=== PATIENT | male | born 1950 | race Caucasian/White ===

== ENCOUNTER → 2020-06-20 13:18 | Outpatient (BNVA) | payer OTHER, SELFPAY | PROVIDERS: PCP Internal Medicine Geriatric Medicine; Referring Provider Internal Medicine Geriatric Medicine; Visit Provider Urology | DX: Z76.89 Persons encountering health services in other specified circumstances (principal) ==

== ENCOUNTER 2020-12-11 13:35 | Outpatient (REF) | payer OTHER, SELFPAY ==
--- NOTE | ~2020-12-11 | US_ITS ---
EXAMINATION: US RETROPERITONEAL LIMITED (RENAL ONLY) CLINICAL INFORMATION: Calculus of kidney. COMPARISON: None TECHNIQUE: Real-time imaging of the kidneys. FINDINGS: RIGHT KIDNEY: 15.6 x 7.2 x 7.2 cm (SAG x AP x TRV). The kidney is normal in size, contour, and echogenicity. Renal cortical thickness is normal. There are multiple cysts. The largest measures 4.7 x 4.3 x 5 cm in the upper pole. No renal calculi or hydronephrosis. LEFT KIDNEY: 13.6 x 6.1 x 5.7 cm (SAG x AP x TRV). The kidney is normal in size, contour, and echogenicity. Renal cortical thickness is normal. There is question of a duplicated left renal collecting system with mild hydronephrosis and dilatation of the upper pole moiety proximal ureter versus extrarenal pelvis. No stone is seen. There is a 2.7 x 2.5 x 2.5 cm cyst in the lower pole.. US/US renal BI IMPRESSION: Question duplicated left renal collecting system with mild hydronephrosis and dilatation of the upper pole moiety proximal ureter versus extrarenal pelvis. Bilateral renal cysts, right greater than left.
== END 2020-12-11 13:36 | disposition home or self-care (01) ==
LOC: HO.US 13:35
PROVIDERS: PCP Internal Medicine Geriatric Medicine; Visit Provider Urology
DX: N20.0 Calculus of kidney (principal)
CPT/HCPCS: 76775

== ENCOUNTER → 2021-05-28 14:31 | Outpatient (BNVA) | payer OTHER, SELFPAY | PROVIDERS: PCP Internal Medicine Geriatric Medicine; Visit Provider Urology ==

== ENCOUNTER 2021-08-05 14:17 | Outpatient (REF) | payer OTHER, SELFPAY ==
--- NOTE | ~2021-08-05 | US_ITS ---
EXAMINATION: US RETROPERITONEAL LIMITED (RENAL ONLY) CLINICAL INFORMATION: Calculus of kidney. COMPARISON: Renal ultrasound 12/11/2020. TECHNIQUE: Real-time imaging of the kidneys. FINDINGS: RIGHT KIDNEY: 13.9 x 6.1 x 5.9 cm (SAG x AP x TRV). The kidney is normal in size, contour, and echogenicity. Renal cortical thickness is normal. No renal calculi or hydronephrosis. There are numerous cysts seen. There are anechoic cysts, largest in the upper pole measuring 4.3 x 3.4 x 3.7 seen. There is anechoic cyst in upper pole with septation measuring 4.1 x 4.6 x 3.8 seen. There are no echogenic stones. There are prominent dilated renal pyramids. LEFT KIDNEY: 13.1 x 6.1 x 5.4 cm (SAG x AP x TRV). The kidney is normal in size, contour, and echogenicity. Renal cortical thickness is normal. No renal calculi. There are numerous anechoic cysts. The largest lower pole cyst measures 2.8 x 2.6 x 2.5 cm and the midpole cyst measures 2.5 x 3.1 x 3.2 cm. There is mild hydronephrosis. Limited imaging to the bladder reveals a normal bilateral ureteral jet. US/US renal BI IMPRESSION: Bilateral renal cysts. Complex upper pole right renal cyst and simple cyst otherwise in both kidneys. Mild hydronephrosis left kidney likely due to redundant pelvis and ureter. Normal bilateral ureteral jets are seen in the bladder.
== END 2021-08-05 14:18 | disposition home or self-care (01) ==
LOC: HO.US 14:17
PROVIDERS: Visit Provider Urology
DX: N20.0 Calculus of kidney (principal)
CPT/HCPCS: 76775

== ENCOUNTER → 2021-08-30 13:59 | Outpatient (BNVA) | payer OTHER, SELFPAY | PROVIDERS: PCP Internal Medicine Geriatric Medicine; Visit Provider Urology | DX: N40.1 Benign prostatic hyperplasia with lower urinary tract symptoms (principal); N32.81 Overactive bladder; N20.0 Calculus of kidney | CPT/HCPCS: 52000 ==

== ENCOUNTER → 2021-11-29 11:12 | Outpatient (BNVA) | payer OTHER, SELFPAY | PROVIDERS: PCP Family Medicine; Visit Provider Urology | DX: Z13.89 Encounter for screening for other disorder (principal) ==

== ENCOUNTER → 2022-10-16 10:27 | Outpatient (BNVA) | payer OTHER, SELFPAY | PROVIDERS: PCP Family Medicine; Visit Provider Urology | DX: Z13.89 Encounter for screening for other disorder (principal) ==

== ENCOUNTER 2023-04-21 10:18 | Outpatient (AMB) | payer OTHER, SELFPAY ==
--- NOTE | 2023-04-21 10:32 | MHC.OFFVIS ---
Intake Intake Visit Reasons: 6m follow up/PVR Intake Note: Patient is present for Follow Up PVR Urology Med: Terazosin, Tadalafil Antibiotic Allergy: None Blood Thinner: None Pharmacy: [facility] PVR: 40 Allergies No Known Allergies Allergy (Verified 04/21/23 10:37) Medication List - Last Reconciled 04/21/23 by Chapin Oropeza MD amlodipine 10 mg PO DAILY losartan-hydrochlorothiazide 100-25 mg 1 tab PO DAILY meloxicam 15 mg PO DAILY PRN tadalafil 5 mg PO DAILY 90 days terazosin 5 mg PO BEDTIME 90 days HPI HPI Comments History of Present Illness Details Jabier is a pleasant male. He is a patient of Dr. Hines. He is seen for the following urologic conditions - lower urinary tract symptoms - overactive bladder dry - nephrolithiasis PVR 40 cc Has bladder control Some leakage at the end of urination Recommend pelvic floor exercises Will increase tadalafil to 10 mg Remains on combination terazosin and tadalafil Did discuss Botox versus InterStim Lower Urinary Tract Symptoms:? Current visit is for?further evaluation of, lower urinary tract symptoms, predominate irritative symptoms.? Current treatment includes combination therapy - terazosin, tadalafil - right discussion Botox ?Failed previous oxybutynin - failed PTNS, Myrbetriq, tropsium Cystoscopy - 09/07 smaller prostate with open bladder neck ? Prostate Symptom Score?09/05 , Mild (0-8), Bother 2.? Symptoms include?09/05 , incomplete emptying, weak stream, urgency.? Prostate volume?30-50gm Nephrolithiasis/Urolithiasis:? They are here for?further evaluation of nephrolithiasis.? Prior imaging includes?09/03 , a renal ultrasound, showing no evidence of stones - 12/05 renal ultrasound bilateral renal cysts 4.7 cm right, 2.7 cm left - 05/08 renal ultrasound multiple bilateral cysts up to 4 cm no evidence of stones PFSH Medical History Benign prostatic hyperplasia with lower urinary tract symptoms Feeling of incomplete bladder emptying HTN (hypertension) Hyperlipidemia Surgical History History of surgery Review of Systems Const Denies chills and Denies fever(s) Card Reports no additional complaints and Denies syncope Resp Denies cough GI Denies abdominal pain and Denies heartburn Reports as per HPI and Denies change in libido Neuro Denies syncope Psych Denies change in libido Endo Denies change in libido Physical Exam Const General: cooperative, healthy appearing, comfortable and no acute distress Orientation/consciousness: patient oriented x3 HEENT Face and sinus: Yes normal facial exam Mouth: moist mucous membranes Neck Neck: Yes normal visual inspection, Yes full ROM and Yes trachea midline Chest Chest palpation & inspection: normal inspection of the chest Resp Effort & Inspection: normal respiratory effort, able to speak in complete sentences and no respiratory distress GI Inspection: Yes normal to inspection Back/Spine/Pelvis Cervical Spine: normal cervical lordosis Thoracic/Lumbar Spine: thoracic and lumbar spine normal to inspection Skin General skin exam: no rashes or lesions noted Neuro General: patient oriented x3, gait normal, tone normal and moves all extremities Extrem General: Yes normal to inspection and Yes capillary refill normal Office Procedures Post Void Residual Post Residual Void Post Void Residual (PVR): 40 [id number] Void Residual by ultrasound Results AMB Urinalysis, Automated UA Leukoctes 0 Indira/uL Last Edit by JUANA Blount on 04/21/23 10:42 UA Nitrite Negative Last Edit by JUANA Blount on 04/21/23 10:42 UA Urobilinogen 0.2 mg/dL Last Edit by JUANA Blount on 04/21/23 10:42 UA Protein 0 mg/dL Last Edit by JUANA Blount on 04/21/23 10:42 UA pH 6.0 Last Edit by JUANA Blount on 04/21/23 10:42 UA Blood 0 Mike/uL Last Edit by JUANA Blount on 04/21/23 10:42 UA Specific Holman 1.020 Last Edit by JUANA Blount on 04/21/23 10:42 UA Ketone Negative Last Edit by JUANA Blount on 04/21/23 10:42 UA Bilirubin 0 mg/dL Last Edit by JUANA Blount on 04/21/23 10:42 UA Glucose 0 mg/dL Last Edit by JUANA Blount on 04/21/23 10:42 Results Reviewed Results Reviewed: Laboratory Last Values Urine pH (Auto) 6.0 04/21/23 10:37 Specific Holman (Auto) 1.020 04/21/23 10:37 Urine Protein (Auto) 0 mg/dL 04/21/23 10:37 Glucose (UA)(Auto) 0 mg/dL 04/21/23 10:37 Urine Ketones (Auto) Negative 04/21/23 10:37 Urine Blood (Auto) 0 Mike/uL 04/21/23 10:37 Urine Nitrite (Auto) Negative 04/21/23 10:37 Urine Bilirubin (Auto) 0 mg/dL 04/21/23 10:37 Urine Urobilinogen (Auto) 0.2 mg/dL 04/21/23 10:37 Leukocyte Esterase (Auto) 0 Indira/uL 04/21/23 10:37 Assessment & Plan Assessment & Plan (1) Overactive bladder: Code(s): N32.81 - Overactive bladder (2) BPH loc w urin obs/LUTS: Code(s): N40.1 - Benign prostatic hyperplasia with lower urinary tract symptoms Plan Increase tadalafil 10 mg 6 month follow-up Orders: Orders AMB Urinalysis Automated Today Z13.9 - Encounter for screening, unspecified AMB Post Void Residual by ultrasound Today N32.81 - Overactive bladder Medications: Changed From tadalafil 5 mg PO DAILY 90 days 90 tabs 3RF BPH N40.1 - Benign prostatic hyperplasia with lower urinary tract symptoms To tadalafil 10 mg PO DAILY 90 days 90 tabs 1RF BPH N40.1 - Benign prostatic hyperplasia with lower urinary tract symptoms Patient Instructions: Imaging studies, laboratory and physical exam results were discussed and reviewed in detail. No major barriers to patient understanding were identified. An opportunity to ask questions regarding the treatment plan was provided. All questions were answered. The patient expressed understanding and agreement with the above treatment plan. The patient is aware they should contact our office by phone for worsening of their current condition or the appearance of new urologic symptoms. Compliance is encouraged with any medications and followup testing that is ordered. It is a privilege to participate in the urologic care of your patient. If you have any questions or concerns regarding treatment for the above conditions, or other urologic issues, please do not hesitate to contact me. The office telephone contact is [phone]. This note is constructed using voice recognition software. While every effort has been made to ensure accuracy converter supervisor errors may have been included. Yours sincerely, Dr Chapin Oropeza MD, [facility] - Urology Providers of Expert, Compassionate Care for the Genitourinary System Coding Level of Care Code Est Pt Level 4 (09372) Diagnoses Overactive bladder N32.81 BPH loc w urin obs/LUTS N40.1 CPT Codes Post Residual Void - PVR CPT Code: 71728-Kkeu Void Residual by ultrasound ([id number])
== END 2023-04-21 11:31 | disposition home or self-care (01) ==
PROVIDERS: PCP Family Medicine; Visit Provider Urology
DX: N32.81 Overactive bladder (principal); N40.1 Benign prostatic hyperplasia with lower urinary tract symptoms; Z13.9 Encounter for screening, unspecified
CPT/HCPCS: 99214

== ENCOUNTER → 2023-04-21 10:18 | Outpatient (BNVA) | payer OTHER, SELFPAY | PROVIDERS: Visit Provider Urology | DX: N32.81 Overactive bladder (principal); N40.1 Benign prostatic hyperplasia with lower urinary tract symptoms; N13.8 Other obstructive and reflux uropathy; Z79.899 Other long term (current) drug therapy | CPT/HCPCS: 51798; 81003 ==

== ENCOUNTER 2023-10-27 08:26 | Outpatient (AMB) | payer OTHER, SELFPAY ==
--- NOTE | 2023-10-27 08:29 | A.OFFVIS_ITS ---
Intake Intake Visit Reasons: 6M PVR/Med Review (Confirmed) Intake Note: Patient presents today for a follow-up on PVR Meds- Tadalafil, Terazosin, Allergies to Antibiotic- No Known Allergies Blood Thinner- None Post Void Residual: 24ml Leasing Specialist Required: No Accompanied by: Self / Same As Patient Allergies No Known Allergies Allergy (Verified 10/27/23 08:36) HPI HPI Comments History of Present Illness Details Jabier is a pleasant male. He is a patient of Dr. Hines. He is seen for the following urologic conditions - lower urinary tract symptoms - overact delphine bladder dry - nephrolithiasis Telemedicine Evaluation 15 min Consultation [employer] Emmy Video attempted Follow-up for trial of tadalafil 10 mg to manage overactive bladder Remains on combination terazosin and tadalafil Did have some improvement with tadalafil Current primary issue is postvoid dribbling, urgency, frequency Will retrial anticholinergic this time using Toviaz Prior discussion Botox versus InterStim Leaning to InterStim possibly 2 month tele Lower Urinary Tract Symptoms:? Current visit is for?further evaluation of, lower urinary tract symptoms, predominate irritative symptoms.? Current treatment includes combination therapy - terazosin, tadalafil - right discussion Botox ?Failed previous oxybutynin - failed PTNS, Myrbetriq, tropsium Cystoscopy - 09/07 smaller prostate with open bladder neck ? Prostate Symptom Score?09/05 , Mild (0-8), Bother 2.? Symptoms include?09/05 , incomplete emptying, weak stream, urgency.? Prostate volume?30-50gm Nephrolithiasis/Urolithiasis:? They are here for?further evaluation of nephrolithiasis.? Prior imaging includes?1/18 , a renal ultrasound, showing no evidence of stones - 12/05 renal ultrasound bilateral renal cysts 4.7 cm right, 2.7 cm left - 05/08 renal ultrasound multiple bilateral cysts up to 4 cm no evidence of stones PFSH Medical History Benign prostatic hyperplasia with lower urinary tract symptoms Feeling of incomplete bladder emptying HTN (hypertension) Hyperlipidemia Surgical History History of surgery Review of Systems Const Denies chills and Denies fever(s) Card Reports no additional complaints and Denies syncope Resp Denies cough GI Denies abdominal pain and Denies heartburn Reports as per HPI and Denies change in libido Neuro Denies syncope Psych Denies change in libido Endo Denies change in libido Physical Exam Const General: cooperative, healthy appearing, comfortable and no acute distress Orientation/consciousness: patient oriented x3 HEENT Face and sinus: Yes normal facial exam Mouth: moist mucous membranes Neck Neck: Yes normal visual inspection, Yes full ROM and Yes trachea midline Chest Chest palpation & inspection: normal inspection of the chest Resp Effort & Inspection: normal respiratory effort, able to speak in complete sentences and no respiratory distress GI Inspection: Yes normal to inspection Back/Spine/Pelvis Cervical Spine: normal cervical lordosis Thoracic/Lumbar Spine: thoracic and lumbar spine normal to inspection Skin General skin exam: no rashes or lesions noted Neuro General: patient oriented x3, gait normal, tone normal and moves all extremities Extrem General: Yes normal to inspection and Yes capillary refill normal Office Procedures Post Void Residual Post Residual Void Post Void Residual (PVR): 24 [id number] Void Residual by ultrasound Assessment & Plan Assessment & Plan (1) Overactive bladder: Code(s): N32.81 - Overactive bladder (2) BPH loc w urin obs/LUTS: Code(s): N40.1 - Benign prostatic hyperplasia with lower urinary tract symptoms Plan Trial tibia Orders: Orders AMB Post Void Residual by ultrasound Today R33.9 - Retention of urine, unspecified Medications: New fesoterodine ER (Toviaz) 4 mg PO DAILY 30 tabs 1RF 30 days N32.81 - Overactive bladder, N39.41 - Urge incontinence Refilled terazosin 5 mg PO BEDTIME 90 caps 3RF 90 days N32.81 - Overactive bladder tadalafil 10 mg PO DAILY 90 tabs 1RF BPH 90 days N40.1 - Benign prostatic hyperplasia with lower urinary tract symptoms Patient Instructions: Imaging studies, laboratory and physical exam results were discussed and reviewed in detail. No major barriers to patient understanding were identified. An opportunity to ask questions regarding the treatment plan was provided. All questions were answered. The patient expressed understanding and agreement with the above treatment plan. The patient is aware they should contact our office by phone for worsening of their current condition or the appearance of new urologic symptoms. Compliance is encouraged with any medications and followup testing that is ordered. It is a privilege to participate in the urologic care of your patient. If you have any questions or concerns regarding treatment for the above conditions, or other urologic issues, please do not hesitate to contact me. The office telephone contact is [phone]. This note is constructed using voice recognition software. While every effort has been made to ensure accuracy senior fire protection engineer errors may have been included. Yours sincerely, Dr Chapin Oropeza MD, [facility] - Urology Providers of Expert, Compassionate Care for the Genitourinary System Coding Level of Care Code Est Pt Level 4 (95032) Diagnoses Overactive bladder N32.81 BPH loc w urin obs/LUTS N40.1 CPT Codes Post Residual Void - PVR CPT Code: 69311-Gida Void Residual by ultrasound ([id number])
== END 2023-10-27 08:46 | disposition home or self-care (01) ==
PROVIDERS: PCP Family Medicine; Visit Provider Urology
DX: N32.81 Overactive bladder (principal); N40.1 Benign prostatic hyperplasia with lower urinary tract symptoms
CPT/HCPCS: 99214

== ENCOUNTER → 2023-10-27 08:26 | Outpatient (BNVA) | payer OTHER, SELFPAY | PROVIDERS: PCP Family Medicine; Visit Provider Urology | DX: N32.81 Overactive bladder (principal); N40.1 Benign prostatic hyperplasia with lower urinary tract symptoms; N13.8 Other obstructive and reflux uropathy | CPT/HCPCS: 51798 ==

== ENCOUNTER 2024-01-01 08:51 | Outpatient (AMB) | payer OTHER, SELFPAY ==
--- NOTE | 2024-01-01 08:51 | MHC.OFFVIS ---
Intake Visit Reasons: 2m follow up Lead Business Systems Analyst Required: No Allergies No Known Allergies Allergy (Verified 01/01/24 08:52) Medication List - Last Reconciled 01/01/24 by Chapin Oropeza MD amlodipine 10 mg PO DAILY fesoterodine ER (Toviaz) 4 mg PO DAILY 90 days loratadine (Claritin) 10 mg PO DAILY losartan-hydrochlorothiazide 100-25 mg 1 tab PO DAILY meloxicam 15 mg PO DAILY PRN omeprazole 20 mg PO DAILY tadalafil 10 mg PO DAILY 90 days terazosin 5 mg PO BEDTIME 90 days HPI Comments Details: Jabier is a pleasant male. He is a patient of Dr. Hines. He is seen for the following urologic conditions - lower urinary tract symptoms - overactive bladder dry - nephrolithiasis Telemedicine Evaluation 15 min Consultation CDEL Emmy Video attempted Follow-up for trial of tadalafil 10 mg to manage overactive bladder Remains on combination terazosin and tadalafil Toviaz Has adequate control Still with some leakage will send pelvic floor exercises Leaning toward trial InterStim Will organized Lower Urinary Tract Symptoms:? Current visit is for?further evaluation of, lower urinary tract symptoms, predominate irritative symptoms.? Current treatment includes combination therapy - terazosin, tadalafil - prior discussion Botox ?Failed previous oxybutynin - failed PTNS, Myrbetriq, tropsium Cystoscopy - 09/07 smaller prostate with open bladder neck ? Prostate Symptom Score?09/05 , Mild (0-8), Bother 2.? Symptoms include?09/05 , incomplete emptying, weak stream, urgency.? Prostate volume?30-50gm Nephrolithiasis/Urolithiasis:? They are here for?further evaluation of nephrolithiasis.? Prior imaging includes?09/03 , a renal ultrasound, showing no evidence of stones - 12/05 renal ultrasound bilateral renal cysts 4.7 cm right, 2.7 cm left - 05/08 renal ultrasound multiple bilateral cysts up to 4 cm no evidence of stones PFSH Medical History HTN (hypertension) Hyperlipidemia Feeling of incomplete bladder emptying Benign prostatic hyperplasia with lower urinary tract symptoms Surgical History History of surgery Review of Systems Const All systems reviewed & are unremarkable except as noted in HPI and below Reports no additional complaints Resp Reports no additional complaints GI Reports no additional complaints Reports as per HPI Musc Reports no additional complaints Physical Exam Telemedicine evaluation Appropriate responses Regular breathing rate and rhythm HEENT Head: Yes normal to inspection Ears: hearing grossly normal bilaterally Eyes General: appearance normal, both eyes and all related structures Neck Neck: Yes normal visual inspection Chest Chest palpation & inspection: normal inspection of the chest Resp Effort & Inspection: normal respiratory effort and able to speak in complete sentences Telehealth Telehealth Telehealth Platform: CDEL Location of provider rendering services: practice address Location of patient: address on file Patient Identification confirmed using: Name, : Yes Telehealth method: video Patient verbally consented to treatment: Yes Patient verbally consented to billing insurance company: Yes Patient informed of any privacy concerns related to visit: Yes Minutes spent on Phone/Video with Pt.: 15 Assessment & Plan Assessment & Plan (1) Overactive bladder: Code(s): N32.81 - Overactive bladder Category: Medical (2) BPH loc w urin obs/LUTS: Code(s): N40.1 - Benign prostatic hyperplasia with lower urinary tract symptoms Category: Medical Plan Risks, benefits and alternatives to therapy were discussed. These include but are not limited to infection, bleeding, damage to local organs and tissues, need for further interventions. Anesthetic risks regarding cardiac arrhythmia, blood clots, and potential mortality were discussed. The patient understands the typical recovery time and the outpatient nature of the procedure. After consideration of these risks the patient gives full informed consent and they wish to move ahead with the procedure. InterStim trial bilateral lead Patient Instructions: Imaging studies, laboratory and physical exam results were discussed and reviewed in detail. No major barriers to patient understanding were identified. An opportunity to ask questions regarding the treatment plan was provided. All questions were answered. The patient expressed understanding and agreement with the above treatment plan. The patient is aware they should contact our office by phone for worsening of their current condition or the appearance of new urologic symptoms. Compliance is encouraged with any medications and followup testing that is ordered. It is a privilege to participate in the urologic care of your patient. If you have any questions or concerns regarding treatment for the above conditions, or other urologic issues, please do not hesitate to contact me. The office telephone contact is [phone]. This note is constructed using voice recognition software. While every effort has been made to ensure accuracy keel press operator errors may have been included. Yours sincerely, Dr Chapin Oropeza MD, [facility] - Urology Providers of Expert, Compassionate Care for the Genitourinary System Coding Level of Care Code Tele Est Pt Level 4 (09685) Complex EM visit Add On G2211 Diagnoses Overactive bladder N32.81 BPH loc w urin obs/LUTS N40.1
== END 2024-01-01 09:47 | disposition home or self-care (01) ==
LOC: HO.HUSH 08:51
PROVIDERS: PCP Family Medicine; Visit Provider Urology
DX: N32.81 Overactive bladder (principal); N40.1 Benign prostatic hyperplasia with lower urinary tract symptoms
CPT/HCPCS: 99214

== ENCOUNTER → 2024-01-01 08:51 | Outpatient (BNVA) | payer OTHER, SELFPAY | PROVIDERS: PCP Family Medicine; Visit Provider Urology ==

== ENCOUNTER 2024-03-17 12:34 | Outpatient (REF) | payer OTHER, SELFPAY ==
--- NOTE | 2024-03-17 14:11 | P.OP_ITS ---
Operative Note Operative Note Date of Service: 03/17/24 Narrative: PreOperative Diagnosis: 1) Overactive bladder with urinary urgency and frequency with urinary leakage Post Operative Diagnosis: 1) Overactive bladder with urinary urgency and frequency with urinary leakage (N39.41, R35.0) Procedure: 1.) Percutaneous implantation of neurostimulator electrode array including image guidance - performed bilateral - left and right foramen Surgeon: Dr Chapin Oropeza Anesthesia: sedation Indications for procedure: - Failed multiple (more than 2) anticholinergic medications in attempt to manage urinary urgency and frequency Procedure: After informed consent was verified the patient was brought to the interventional radiology suite. The patient was placed in a prone position and prepped and draped in a sterile fashion. Safety pause time-out was performed. Using the C-arm and Finder needle the S3 foramen exiting from the pelvic arch was marked horizontally from left to right as our horizontal marker. The left and right medial aspect of foramen were highlighted and aligned with the finder needle in a vertical fashion. Lines were marked. The intersection of these lines marked the entry point on the skin of the medial aspect of the left and right S3 foramen. Local anesthetic was infiltrated along the vertical aspect on both sides. The finder needle was inserted initially into the right targeted foramen. Imaging was performed in AP and lateral fashion. The needle was shown to into the left S4 foramen. The needle was repositioned and entry into the left S3 foramen was confirmed. The nondestructive tester was attached and assessed for placement with Sanjay response and toe movement at 0.4Amp. A 2nd needle was placed for entry into right S3 foramen. The nondestructive tester was attached and assessed for placement with Sanjay response and toe movement. Good responses were confirmed at low amperage (under 1A) bilateral - 0.3, 0.4 respectively Starting with the left side the internal introducer from the needle was removed and the nondestructive tester placed. The needle was carefully removed and imaging used to confirm good placement of nondestructive tester. This procedure was repeated on the left side. The two test leads were then attached to the test generator and appropriate dressing was applied in order to maintain integrity for the duration of the outpatient test sequence. CPT 19556, plus 27644-01 for second lead placement. Inclusive of image guidance, 44563 - simple programming
== END 2024-03-17 12:35 | disposition home or self-care (01) ==
LOC: HO.RADIR 12:34
PROVIDERS: Visit Provider Urology
DX: N39.41 Urge incontinence (principal); R35.0 Frequency of micturition; N32.81 Overactive bladder
CPT/HCPCS: 64561; C1787; C1897

== ENCOUNTER → 2024-03-17 12:34 | Outpatient (BNV) | payer OTHER, SELFPAY | PROVIDERS: Visit Provider Urology | DX: N32.81 Overactive bladder (principal) | CPT/HCPCS: 64561; 95971 ==

== ENCOUNTER 2024-03-24 14:19 | Outpatient (AMB) | payer OTHER, SELFPAY ==
--- NOTE | 2024-03-24 14:25 | A.OFFVIS_ITS ---
Intake Visit Reasons: Lead removal Intake Note: Patient presents today for Interstim Lead Removal Meds: Tadalafil, Terazosin, Fesoterodine Allergies to Antibiotic: No Known Allergies Blood Thinner: None Cutter Plastics Rolls Required: No Accompanied by: Self / Same As Patient Allergies No Known Allergies Allergy (Verified 03/24/24 14:37) HPI Comments Details: Jabier is a pleasant 73-year-old male patient of Dr. Hines. He has a past medical history of hypertension, hyperlipidemia, nephrolithiasis, and overactive bladder. He presents to the office today for removal of InterStim test leads. Of note, patient was seen by Dr. Oropeza approximately 1 week ago at which time he underwent InterStim phase 1 placement. In discussion with the patient today he reports noting improvement in episodes of urinary frequency as well as nocturia. He shares with me data collected on [employer] application. Patient had been having up to 9 voids per day and episodes of nocturia up to 5 times per night this has decreased to approximately 7 voids per day and 3 episodes of nocturia per night. He feels this has been helpful for him. InterStim test leads removed without difficulty. He has a longstanding history of overactive bladder/irritative symptoms and has trialed multiple overactive bladder medications without improvement in symptoms. He otherwise denies any other issues or concerns at this time. Will keep scheduled appointment for InterStim placement on Thursday with Dr. Oropeza as planned. All questions were answered. PREVIOUS OFFICE NOTE: Follow-up for trial of tadalafil 10 mg to manage overactive bladder Remains on combination terazosin and tadalafil Toviaz Has adequate control Still with some leakage will send pelvic floor exercises Leaning toward trial InterStim Will organized Lower Urinary Tract Symptoms:? Current visit is for?further evaluation of, lower urinary tract symptoms, predominate irritative symptoms.? Current treatment includes combination therapy - terazosin, tadalafil - prior discussion Botox ?Failed previous oxybutynin - failed PTNS, Myrbetriq, tropsium Cystoscopy - 09/07 smaller prostate with open bladder neck ? Prostate Symptom Score?09/05 , Mild (0-8), Bother 2.? Symptoms include?09/05 , incomplete emptying, weak stream, urgency.? Prostate volume?30-50gm Nephrolithiasis/Urolithiasis:? They are here for?further evaluation of nephrolithiasis.? Prior imaging includes?09/03 , a renal ultrasound, showing no evidence of stones - 12/05 renal ultrasound bilateral renal cysts 4.7 cm right, 2.7 cm left - 05/08 renal ultrasound multiple bilateral cysts up to 4 cm no evidence of stones PFSH Medical History HTN (hypertension) Hyperlipidemia Feeling of incomplete bladder emptying Benign prostatic hyperplasia with lower urinary tract symptoms Surgical History History of surgery Review of Systems Const All systems reviewed & are unremarkable except as noted in HPI and below Physical Exam Const General: cooperative, healthy appearing, comfortable, no acute distress, well developed, alert and awake Orientation/consciousness: patient oriented x3 Limitations: no limitations HEENT Head: Yes normal to inspection, Yes normocephalic and Yes atraumatic Ears: hearing grossly normal bilaterally Eyes General: appearance normal, both eyes and all related structures Neck Neck: Yes normal visual inspection and Yes trachea midline Chest Chest palpation & inspection: normal inspection of the chest Resp Effort & Inspection: normal respiratory effort and able to speak in complete sentences Cardio Rate: regular rate GI Inspection: Yes normal to inspection General: Yes no CVA tenderness Back/Spine/Pelvis Back: no CVA tenderness Skin General skin exam: no rashes or lesions noted Neuro General: patient oriented x3 Extrem General: Yes normal to inspection Psych Appearance: grossly normal and well kempt Mental Status: mental status grossly normal Speech and movement: Normal speech and movement present and Clear speech present Affect: normal affect Attitude: cooperative Thought process: Normal thought process present Thought content: Normal thought content present Insight: Fair insight present (Psych) Judgement: Fair judgement present (Psych) Assessment & Plan Assessment & Plan (1) Overactive bladder: Code(s): N32.81 - Overactive bladder Category: Medical (2) BPH loc w urin obs/LUTS: Code(s): N40.1 - Benign prostatic hyperplasia with lower urinary tract symptoms Category: Medical Plan InterStim test leads removed without difficulty; leads intact upon removal. Patient tolerated removal well. Site appears clean dry and intact. Keep scheduled surgical appointment with Dr. Oropeza for surgical intervention of InterStim placement. Patient Instructions: The patient had an opportunity to ask questions regarding the treatment plan. All questions were answered. Physical exam, labs, and imaging were discussed and reviewed in detail. As well as risks, benefits, and discussion of treatment choices. No major barriers to understanding were identified. The patient expressed understanding and agreement with the above treatment plan. The patient was made aware they should contact our office by phone for worsening of their current condition, the appearance of new symptoms, or with any questions or concerns. Compliance is encouraged with any medications and follow up testing that is ordered. It is a privilege to be allowed the opportunity to participate in? your urological care.? Again, if you have any questions or c oncerns If you have any questions or concerns please do not hesitate to contact me. The office is [phone]. This note is constructed using voice recognition software. While every effort has been made to ensure accuracy mint wafer depositor errors may have been included. Yours sincerely, CARMEN Cooper Coding Level of Care Code Est Pt Level 3 (36411) Diagnoses Overactive bladder N32.81 BPH loc w urin obs/LUTS N40.1
== END 2024-03-24 15:02 | disposition home or self-care (01) ==
PROVIDERS: Visit Provider Nurse Practitioner Family
DX: N32.81 Overactive bladder (principal); N40.1 Benign prostatic hyperplasia with lower urinary tract symptoms
CPT/HCPCS: 99213

== ENCOUNTER → 2024-03-24 14:19 | Outpatient (BNVA) | payer OTHER, SELFPAY | PROVIDERS: Visit Provider Nurse Practitioner Family ==

== ENCOUNTER 2024-03-28 10:54 | Day surgery (SDC) | payer OTHER, SELFPAY ==
--- NOTE | 2024-03-25 11:45 | HO.ANESPROP2 ---
Documented by User: Sarah Santos NP 03/25/24 11:51 HPI - Anesthesia Eval Consult details Narrative: 73yo M for Interstim Generator Implant PMFSH Active Problems Active Problems: All Active Problems Overactive bladder (Acute) Nephrolithiasis (Acute) BPH loc w urin obs/LUTS (Acute) Past Medical History Medical History (Updated 03/28/24 @ 11:37 by Ashleigh Holden RN) Hepatitis-C Sleep apnea Kidney stones HTN (hypertension) Hyperlipidemia Feeling of incomplete bladder emptying Benign prostatic hyperplasia with lower urinary tract symptoms Surgical History Surgical History (Updated 03/28/24 @ 11:32 by Ashleigh Holden, RN) History of surgery History of Achilles tendon repair History of back surgery H/O rotator cuff surgery History of surgery Social History Social History Patient Tobacco Use Status: Former Tobacco user Tobacco use type: Cigarette Meds Allergies Allergy/AdvReac Type Severity Reaction Status Date / Time No Known Allergies Allergy Verified 03/24/24 14:37 Home Medications ?Medication ?Instructions ?Recorded ?Confirmed ?Last Taken ?Type amlodipine 10 mg tablet 10 mg PO DAILY 06/20/20 01/01/24 Unknown History losartan 100 1 tab PO DAILY 06/20/20 01/01/24 Unknown History mg-hydrochlorothiazide 25 mg tablet meloxicam 15 mg tablet 15 mg PO DAILY PRN pain 08/30/21 01/01/24 Unknown History omeprazole 20 mg capsule,delayed 20 mg PO DAILY 10/27/23 01/01/24 Unknown History release Exam Pertinent Lab Results Pertinent Lab Results: Labs 11/2023 from outside facility: CBC and BMP WNL Narrative Narrative: ECHO 2021 WNL per 2022 PCP visit Assessment and Plan Assessment Anesthesia Assessment: Chart Reviewed Documented by User: Montez Smith MD 03/28/24 15:53 PMFSH Past Medical History Medical History (Updated 03/28/24 @ 11:37 by Ashleigh Holden RN) Hepatitis-C Sleep apnea Kidney stones HTN (hypertension) Hyperlipidemia Feeling of incomplete bladder emptying Benign prostatic hyperplasia with lower urinary tract symptoms Family History Family history of problems with anesthesia: No Surgical History Surgical History (Updated 03/28/24 @ 11:32 by Ashleigh Holden RN) History of surgery History of Achilles tendon repair History of back surgery H/O rotator cuff surgery History of surgery History of Problems with Anesthesia: Yes (Told me he vomited during a minimally invasive back procedure at [facility] while he was in the prone position. The procedure had to be aborted. Doesn't know what kind of anesthesia it was.) Social History Social History Patient Tobacco Use Status: Former Tobacco user Tobacco use type: Cigarette Meds Allergies Allergy/AdvReac Type Severity Reaction Status Date / Time No Known Allergies Allergy Verified 03/24/24 14:37 Home Medications ?Medication ?Instructions ?Recorded ?Confirmed ?Last Taken ?Type amlodipine 10 mg tablet 10 mg PO DAILY 06/20/20 01/01/24 Unknown History losartan 100 1 tab PO DAILY 06/20/20 01/01/24 Unknown History mg-hydrochlorothiazide 25 mg tablet meloxicam 15 mg tablet 15 mg PO DAILY PRN pain 08/30/21 01/01/24 Unknown History omeprazole 20 mg capsule,delayed 20 mg PO DAILY 10/27/23 01/01/24 Unknown History release Exam Airway Mallampati Class: II TM Dist: >3cm Neck ROM: Full Loose/Missing/Broken Teeth: No Heart: ok Lungs: ok Assessment and Plan Assessment Anesthesia Assessment: Anesthesia Plan Discussed Final Anesthetic Review Family History of Problems with Anesthesia: No History of Problems with Anesthesia: Yes (Told me he vomited during a minimally invasive back procedure at [facility] while he was in the prone position. The procedure had to be aborted. Doesn't know what kind of anesthesia it was.) NPO: Yes ASA Class: III Final Preanesthetic Review: No Changes in Pt Med Stat, Meds/Allgs Chart Reviewed, Consent Obtained/Reviewed and Anes Risks/Benef Reviewed Patient Risk: Intermediate Procedure Risk: Intermediate Anesthetic Plan Anesthetic Plan: MAC: and Agree w/ Assess. and Plan Disposition: Standard PACU
[2024-03-28 11:33] VITALS: BMI 28.8
[2024-03-28 11:41] VITALS: BP 141/69; PULSE 60; RESP 16; TEMP 36.8; O2SAT 96
[2024-03-28] MEDS: Lactated Ringers 1,000 ML 100 ML IVCONT (11:54)
--- NOTE | 2024-03-28 13:31 | MHC.SHP ---
Pre-Procedural Eval Section A - 24 Hr Update-Section A only Date of Service: 03/28/24 The patient is an INPATIENT: No Changes since office visit: No Cold of Flu in the past 2 weeks, No New Medical Problems, No Changes in Medication and No Patient answered all questions The patient has been examined within 24 hours of the surgical procedure. The History & Physical has been completed within 30 days and I have reviewed it.: Yes Section B - Complete if H&P > 30 days Chief Complaint: Overactive bladder Details of Present Illness: Interstim full implant Relevant Family History (Specify if Yes): No Relevant Social History: None Present Medications: None Medical History: No relevant PMH History of Previous Operations: Relevant previous surgery/procedure and date(s) Allergies: Allergies Allergy/AdvReac Type Severity Reaction Status Date / Time No Known Allergies Allergy Verified 03/24/24 14:37 Review of Systems Sugical H&P ROS: Negative: Constitution, Cardiovascular, Respiratory, Neurological, Psychiatric, Hem-Onc, Allergic/Immunologic, Gastrointestinal, Genitourinary, Musculoskeletal, Integumentary, Endocrine and Eyes/Ears/Nose/Throat Exam Surgical H&P Exam: Normal: HEENT, Normal: Heart, Normal: Lungs, Normal: Extremities, Normal: Abdomen, Normal: Skin and Normal: Neurological Plan Diagnosis/Plan: Unchanged (Interstim lead and generator placement) I have reviewed the history and physical and performed a pertinent physical examination on my patient. No changes have occurred unless specified. Time Spent With Patient Time: Total time managing care of this patient today ____ minutes.
--- NOTE | 2024-03-28 15:52 | W.PM.OPN ---
Operative Note Operative Note Date of Service: 03/28/24 Narrative: PreOperative Diagnosis: Overactive bladder with urinary urgency and frequency - N39.41, R35.0 Post Operative Diagnosis: Overactive bladder with urinary urgency and frequency Procedure: 1.) Placement of InterStim lead 2.) Placement of InterStim battery Surgeon: Dr Chapin Oropeza Anesthesia: sedation Indications for procedure: Failed oral medications. Did well with radio tester. Good response on both right and left side. Procedure: After informed consent was verified the patient was brought to the operating room. Sedation anesthesia was administered per protocol. The patient was placed in a prone position and prepped and draped in a sterile fashion. Safety pause time-out was performed. Using the C-arm in an AP and lateral view the medial aspect of the S3 left foramen was located and marked on the skin. The medial aspect of the sacral roots was marked using the finder needle. The area was infiltrated with local anesthetic. Max of present from prior placement. The finding needle was introduced into the S3 foramen running from a caudad to chordal direction. Using the formation testing operator it was tough to detect good toe movement. Second finer needle placed on right S3 foramen. Again testing did not detect great muscle response. The needle was removed from the left side and then inserted in a more vertical position on the right side changing the angle with which the opening of the foramen was traversed. With this placement there was good toe movement and Sanjay response. Maximum current was less than 1.0 Amp. The internal introducer from the needle was removed and the control lead placed. The finder needle was removed and the dilator sheath introduced. Under fluoroscopic guidance the dilator sheath was advanced till the marker was seen mid point through the sacral bone on the lateral image. The internal cannula from the dilator was removed. The guidewire was removed. The active lead was then introduced through the dilator sheath and advanced so that the 3rd and 4th marked electrodes crossed the internal boundary line of the sacrum. The testing electrode was then hooked up to each of the wire electrodes 0 through 3 and good Sanjay and toe response is was seen at low amplitude below 1.0 amps. This confirmed the clinically relevant position of the live wire. Under live fluoroscopy the introducer sheath was removed deploying the tines of the wire ensuring that the live wire remained in the previously described position. The battery pocket was then created. Packet location was marked running parallel 1 inches below the top of the right sacral bone from AP fluroscopy guidance on the right side. Local anesthetic was infiltrated. A 3 inch incision was made and a subcutaneous pocket was developed in the fat approximately 1.5 cm below the surface. The tunneling device was then used to bridge the distance between the sacral vertical incision and the desired location of the battery pocket. The live wire was placed through the tunneling device and brought out into the battery pocket. The sacral incision was washed with water. A battery was connected to the live wire and placed into the subcutaneous pocket. The battery was tested and had positive fruit picker and displayed normal impedance on all 4 channels. The battery pocket had been washed with sterile water prior to placement of the battery. Interrupted 3-0 Vicryl sutures were used to close the defect spaces and bring skin edges together. Running 4-0 Monocryl sutures were used to appose skin edges. Incisions were dressed using skin glue followed by Tegaderm dressing. Patient tolerated procedure well was extubated in operating room transferred in stable condition to the recovery area. CPT full device replacement 28411, [id number], 01609, 80316-00
--- NOTE | 2024-03-28 15:54 | P.ENANES_ITS ---
Anesthesia Event Note Date of Service: 03/28/24 Event Note: Mr. Wen underwent an Interstim generator implant today in the prone position under MAC anesthesia at [facility]. I did his anesthesia. Notably, he told me that he had a previous minimally invasive back surgery in the prone position at [facility], and about 2/3 thru the procedure, he vomited and the procedure had to be terminated. He doesn't know what kind of anesthesia he had for that procedure, other than that he wasn't conscious. During today's procedure, he was given Versed 2mg immed before entry into the OR. He was positioned prone, and then given a total of about 70 mg propofol in divided doses, after which he was given ketamine 10 mg, followed by further 20 mg doses of propofol. With his level of sedation not too deep, he vomited yellow bilious material mult times, both at trades helper and at deeper levels of propofol sedation. He was given no further ketamine or any other agents. He didn't aspirate because he was prone. Sat remained 95-96% on 1L NC oxygen thruout the procedure. He regurgitated probably a total of about 6 times during the procedure, each time anywhere from 2-5 cc. After the last time, I gave no more propofol and the procedure ended about 20 min later. I'm giving Mr. Wen a copy of this note for him to give to any surgeon or anesthesiologist in the future. Should he need anesthesia services in the future, a copy of this letter should be given to the anesthesiologist. Altho I have no idea why regurgitation during sedation and/or anesthesia in the prone position has happened to him twice, personally I would be hesitant to give him anesthesia in the prone position in the future without a fully protected airway (ie. tracheal intubation). Montez Smith MD Dept of Anesthesiology [place], [place].,
[2024-03-28 15:55] VITALS: BP 110/74; PULSE 60; RESP 18; TEMP 36.6; O2SAT 96
[2024-03-28 16:00] VITALS: BP 117/78; PULSE 60; RESP 16; O2SAT 96
[2024-03-28 16:05] VITALS: BP 129/73; PULSE 52; RESP 14; O2SAT 97
[2024-03-28 16:10] VITALS: BP 135/70; PULSE 58; RESP 15; O2SAT 97
[2024-03-28 16:25] VITALS: BP 136/69; PULSE 62; RESP 16; TEMP 36.6; O2SAT 97
== END 2024-03-28 16:45 | disposition home or self-care (01) ==
PROVIDERS: Visit Provider Urology
PROC: (CPT 64590; principal; 2024-03-28 13:10)
DX: N32.81 Overactive bladder (principal); R35.0 Frequency of micturition; T88.59XA Other complications of anesthesia, initial encounter; R11.10 Vomiting, unspecified; Y83.8 Other surgical procedures as the cause of abnormal reaction of the patient, or of later complication, without mention of misadventure at the time of the procedure; Y70.3 Surgical instruments, materials and anesthesiology devices (including sutures) associated with adverse incidents; Y92.234 Operating room of hospital as the place of occurrence of the external cause; I10 Essential (primary) hypertension; E78.5 Hyperlipidemia, unspecified; N40.1 Benign prostatic hyperplasia with lower urinary tract symptoms; R39.14 Feeling of incomplete bladder emptying; R39.15 Urgency of urination; Z79.899 Other long term (current) drug therapy; Z87.442 Personal history of urinary calculi; Z87.891 Personal history of nicotine dependence
CPT/HCPCS: 64590; 64561; A4364; C1767; C1778; C1787; J0690; J1580; J2250; J2704; J2795; J3010

== ENCOUNTER → 2024-03-28 10:54 | Outpatient (BNV) | payer OTHER, SELFPAY | PROVIDERS: Visit Provider Urology | DX: N32.81 Overactive bladder (principal) | CPT/HCPCS: 64561; 64590 ==

== ENCOUNTER 2024-04-08 13:13 | Outpatient (AMB) | payer OTHER, SELFPAY ==
--- NOTE | 2024-04-08 13:04 | MHC.OFFVIS ---
Intake Visit Reasons: Interstim placement- follow up Intake Note: Patient is present for INTERSTIM PLACEMENT F/U Urology Medication:TADALAFIL Antibiotic Allergy:NONE Blood Thinner:NONE Shoe Sticks Repairer Required: No Allergies No Known Allergies Allergy (Verified 04/08/24 13:05) HPI Comments Details: Jabier is a pleasant male. He is a patient of Dr. Hines. He is seen for the following urologic conditions - lower urinary tract symptoms - overactive bladder dry - nephrolithiasis Telemedicine Evaluation 15 min Consultation Stratoscale Emmy Video attempted Follow-up InterStim placement Had some questions Has significant improvement in control Review in 3 months He will maintain bladder diary Lower Urinary Tract Symptoms:? Current visit is for?further evaluation of, lower urinary tract symptoms, predominate irritative symptoms.? Current treatment includes combination therapy - terazosin, tadalafil - prior discussion Botox ?Failed previous oxybutynin - failed PTNS, Myrbetriq, tropsium Cystoscopy - 09/07 smaller prostate with open bladder neck ? Prostate Symptom Score?09/05 , Mild (0-8), Bother 2.? Symptoms include?09/05 , incomplete emptying, weak stream, urgency.? Prostate volume?30-50gm Nephrolithiasis/Urolithiasis:? They are here for?further evaluation of nephrolithiasis.? Prior imaging includes?09/03 , a renal ultrasound, showing no evidence of stones - 12/05 renal ultrasound bilateral renal cysts 4.7 cm right, 2.7 cm left - 05/08 renal ultrasound multiple bilateral cysts up to 4 cm no evidence of stones PFSH Medical History (Updated 03/28/24 @ 11:37 by Ashleigh Holden RN) Hepatitis-C Sleep apnea Kidney stones HTN (hypertension) Hyperlipidemia Feeling of incomplete bladder emptying Benign prostatic hyperplasia with lower urinary tract symptoms Surgical History (Updated 03/28/24 @ 11:32 by Ashleigh Holden RN) History of surgery History of Achilles tendon repair History of back surgery H/O rotator cuff surgery History of surgery Social History Patient Tobacco Use Status: Former Tobacco user Tobacco use type: Cigarette Review of Systems Const All systems reviewed & are unremarkable except as noted in HPI and below Reports no additional complaints Resp Reports no additional complaints GI Reports no additional complaints Reports as per HPI Musc Reports no additional complaints Physical Exam Telemedicine evaluation Appropriate responses Regular breathing rate and rhythm HEENT Head: Yes normal to inspection Ears: hearing grossly normal bilaterally Eyes General: appearance normal, both eyes and all related structures Neck Neck: Yes normal visual inspection Chest Chest palpation & inspection: normal inspection of the chest Resp Effort & Inspection: normal respiratory effort and able to speak in complete sentences Telehealth Telehealth Location of provider rendering services: practice address Location of patient: address on file Patient Identification confirmed using: Name, : Yes Telehealth method: voice only Patient verbally consented to treatment: Yes Patient verbally consented to billing insurance company: Yes Patient informed of any privacy concerns related to visit: Yes Assessment & Plan Assessment & Plan (1) Nephrolithiasis: Code(s): N20.0 - Calculus of kidney Category: Medical (2) Overactive bladder: Code(s): N32.81 - Overactive bladder Category: Medical Plan Three-month follow-up Patient Instructions: Imaging studies, laboratory and physical exam results were discussed and reviewed in detail. No major barriers to patient understanding were identified. An opportunity to ask questions regarding the treatment plan was provided. All questions were answered. The patient expressed understanding and agreement with the above treatment plan. The patient is aware they should contact our office by phone for worsening of their current condition or the appearance of new urologic symptoms. Compliance is encouraged with any medications and followup testing that is ordered. It is a privilege to participate in the urologic care of your patient. If you have any questions or concerns regarding treatment for the above conditions, or other urologic issues, please do not hesitate to contact me. The office telephone contact is [phone]. This note is constructed using voice recognition software. While every effort has been made to ensure accuracy executive steward errors may have been included. Yours sincerely, Dr Chapin Oropeza MD, T[facility] - Urology Providers of Expert, Compassionate Care for the Genitourinary System Coding Level of Care Code Tele Est Pt Level 3 (21627) Diagnoses Nephrolithiasis N20.0 Overactive bladder N32.81
== END 2024-04-08 13:28 | disposition home or self-care (01) ==
LOC: HO.HUSH 13:13
PROVIDERS: Visit Provider Urology
DX: N20.0 Calculus of kidney (principal); N32.81 Overactive bladder
CPT/HCPCS: 99442

== ENCOUNTER → 2024-04-08 13:13 | Outpatient (BNVA) | payer OTHER, SELFPAY | PROVIDERS: Visit Provider Urology ==

== ENCOUNTER 2024-07-12 10:52 | Outpatient (AMB) | payer OTHER, SELFPAY ==
--- NOTE | 2024-07-12 10:57 | MHC.OFFVIS ---
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 He is a patient of Dr. Hines. He is seen for the following urologic conditions - lower urinary tract symptoms - overactive bladder dry - nephrolithiasis Three-month follow-up May reduce Toviaz since InterStim helping Lower Urinary Tract Symptoms:? Current visit is for?further evaluation of, lower urinary tract symptoms, predominate irritative symptoms.? Current treatment includes combination therapy - terazosin, tadalafil - prior discussion Botox ?Failed previous oxybutynin - failed PTNS, Myrbetriq, tropsium Cystoscopy - 09/07 smaller prostate with open bladder neck ? Prostate Symptom Score?09/05 , Mild (0-8), Bother 2.? Symptoms include?09/05 , incomplete emptying, weak stream, urgency.? Prostate volume?30-50gm - Interstim placement 04/09 with good success Nephrolithiasis/Urolithiasis:? They are here for?further evaluation of nephrolithiasis.? Prior imaging includes?09/03 , a renal ultrasound, showing no evidence of stones - 12/05 renal ultrasound bilateral renal cysts 4.7 cm right, 2.7 cm left - 05/08 renal ultrasound multiple bilateral cysts up to 4 cm no evidence of stones PFSH Medical History (Updated 03/28/24 @ 11:37 by Ashleigh Holden RN) Hepatitis-C Sleep apnea Kidney stones HTN (hypertension) Hyperlipidemia Feeling of incomplete bladder emptying Benign prostatic hyperplasia with lower urinary tract symptoms Surgical History (Updated 03/28/24 @ 11:32 by Ashleigh Holden RN) History of surgery History of Achilles tendon repair History of back surgery H/O rotator cuff surgery History of surgery Social History Patient Tobacco Use Status: Former Tobacco user Tobacco use type: Cigarette Assessment & Plan Assessment & Plan Orders: Orders AMB Urinalysis Automated Today Z13.9 - Encounter for screening, unspecified Coding
== END 2024-07-12 12:02 | disposition home or self-care (01) ==
PROVIDERS: Visit Provider Urology
DX: Z13.9 Encounter for screening, unspecified (principal)

== ENCOUNTER → 2024-07-12 10:52 | Outpatient (BNVA) | payer OTHER, SELFPAY | PROVIDERS: Visit Provider Urology | DX: N40.1 Benign prostatic hyperplasia with lower urinary tract symptoms (principal); N13.8 Other obstructive and reflux uropathy; N32.81 Overactive bladder | CPT/HCPCS: 81003 ==

== ENCOUNTER 2025-02-07 08:05 | Outpatient (AMB) | payer OTHER, SELFPAY ==
--- OUTSIDE RECORDS SUMMARY | 2025-02-07 08:11 | XMS_ITS | Data Portability ---
Author Organization [place] - [facility], Allergy Address [address] [facility] [address] [place] [id number] Care Team Providers Care Pension Fund Manager Name Role Phone [facility] Primary Care Provider Assessment Encounter Date Assessment Date Assessment LastModified by Organization Details LastModified Time 12/30/2023 12/30/2023 73 year old male with nasal congestion. Now significantly affecting his quality of sleep. Examination today including nasal endoscopy reveals congested mucosa, moderate clear rhinorrhea bilaterally. There is evidence of inferior turbinate hypertrophy. There are no polyps. Nasopharynx is normal. The patient is understandably very frustrated as he has tried multiple nasal sprays with little relief. We did discuss that use of Afrin is only exacerbating his problem. I encouraged him to wean off the Afrin and we will try a different nasal steroid spray. We discussed use of oral prednisone, but he just took a taper for a back injury three weeks ago. We will order a CT scan of the sinuses to evaluate for any pathology that I cannot visualize on exam. I will have him follow up with after the scan in the event any surgical intervention may be deemed helpful. It seems as though the breathe right strips and sinus cones provided no relief, so I am not certain the nasal valve collapse is a significant factor. [email or web address] Not available 12/30/2023 12:03:10 05/19/2024 05/19/2024 74 yo M presents for follow up. Triamcinolone nasal spray helps a little. Has not used the Afrin in awhile. I reviewed his CT scan in March showed mucosal thickening within the right frontal sinus and right ethmoidal air cells with a mucous retention cyst or polyp in the right maxillary sinus. There is mucosal thickening within the left maxillary sinus. There was deviation of the soft tissue nasal septum to the left. Symptoms have been better than his visit in the spring. I recommended dual spray therapy adding in azelastine. Further investigation could include allergy testing. I would reserve surgery for a last resort as I do not think it would add much benefit. [email or web address] Not available 05/22/2024 11:08:40 Plan of Treatment Reminders Order Date Submit Date Provider Last Modified By Organization Details Last Modified Time Details Appointments None recorded. Lab None recorded. Referral None recorded. Procedures None recorded. Surgeries None recorded. Imaging CT, sinuses, w/o contrast 2023 [facility], [address] [place], [address], 16:37:49 Medication Orders azelastine 137 mcg (0.1 %) nasal spray 2023 [facility], [address] [place], [address], 10:19:43 Nasacort 55 mcg nasal spray aerosol 2023 [facility], [address] [place], [address], 12:04:33 Patient TargetsNo targets recorded. Patient InstructionsNo instructions recorded. Reason for Referral None Reported. Results Created Date Observation Date Name Description Value Unit Range Abnormal Flag Note LastModifiedBy Organization Detail LastModifiedTime 04/13/20 24 04/13/2024 CT, sinus es, w/o contr ast No observ ation [facility] ed. [facility] [address] [place], [address], 04/14/2024 15:52:36 Result Notes None recorded. Problems Name Problem SNOMED Code Status Onset Date Resolution Date Notes Provider Name and Address Organization Details Recorded Time Impacted cerumen in right ear 16313266446 14446 Active 2022 Impacted cerumen, right ear; Note: Date Diagnose d: 3 9:41 AM (H61.21) Not Available [facility] 4 03:20:23 Impacted cerumen in left ear 67646098747 08573 Active 2017 Impacted cerumen, left ear; Note: Date Diagnose d: 8 9:55 AM (H61.22) Not Available [facility] 4 03:20:23 Sensorin eural hearing loss of bilatera l ears 836603583 Active 2022 Sensorin eural hearing loss, bilatera l; Note: Date Diagnose d: 3 9:41 AM (H90.3) Not Available [facility] 4 03:20:23 Nasal congesti on 02244154 Active 2022 Nasal congesti on; Note: Date Diagnose d: 3 9:41 AM (R09.81) Not Available [facility] 4 03:20:24 Otalgia of right ear 2449766192 Active 2017 Otalgia, right ear; Note: Date Diagnose d: 8 9:55 AM (H92.01) Not Available [facility] 4 03:20:23 Chronic rhinitis 44123445 Active 2023 Randi merritt [place] - [facility] 4 12:04:52 Deviated nasal septum 136962917 Active 2023 Randi merritt [place] - [facility] 4 12:04:59 Benign neoplasm of tongue 97515483 Completed 202303/18/2024 Benign neoplasm of tongue; Note: Date Diagnose d: 4 11:15 AM (D10.1) Not Available [facility] 4 03:20:23 Problem Notes None recorded. Procedures Surgical History Date Name Laterality Status Provider Name and Address Organization Details Recorded Time Nasal Endoscopy completed Randi Funez [place] - [facility] 12/30/2023 11:58:56 Imaging Results None recorded. Procedure Notes None recorded. Medical Equipment None Reported. Allergies No known drug allergies Medications Name Sig Start Date Stop Date Status Note LastModified by Organization Details LastModified Time cyclobenz aprine 10 mg tablet TAKE ONE TABLET BY MOUTH EVERY NIGHT 05/19 completed Not Available Not Available Not Available terazosin 5 mg capsule active Not Available Not Available Not Available prednison e 10 mg tablet TAKE 5 TABLETS BY MOUTH ONCE DAILY FOR 2 DAYS, THEN DECREASE BY 1 TABLET EVERY 2 DAYS 05/19 completed Not Available Not Available Not Available Claritin 10 mg tablet 1 tablet by mouth 2017 active Medicati on ID: [id number] D uration Value: 30 Brand Name: Claritin Send Method: E-Prescr ibed Sub s Allowed: subs OK Medic ationGen ericName : Claritin Not Available Not Available Not Available meloxicam 15 mg tablet TAKE ONE TABLET BY MOUTH EVERY DAY NEEDED FOR PAIN active Not Available Not Available No t Available aspirin 81 mg tablet,de layed release 05/19 completed Medicati on ID: [id number] B rand Name: aspirin Send Method: E-Prescr ibed Sub s Allowed: subs OK Medic ationGen ericName : aspirin Not Available Not Available Not Available ciclopiro x 8 % topical solution 05/19 completed Not Available Not Available Not Available losartan 100 mg-hydroc hlorothia zide 25 mg tablet active Not Available Not Available No t Available triamcino lone acetonide 0.1 % dental paste APPLY A SMALL AMOUNT FOUR TIMES A DAY TO ORAL LESION NEEDED UNTIL GONE 05/19 completed Not Available Not Available Not Available amlodipin e 10 mg tablet active Not Available Not Available Not Available triamcino lone acetonide 55 mcg nasal spray aerosol [place] 2 sprays twice a day by intranas al route. active Not Available Not Available No t Available hydrochlo rothiazid e 25 mg tablet 2018 active Medicati on ID: [id number] D uration Value: 90 Brand Name: hydrochl orothiaz guille Send Method: E-Prescr ibed Sub s Allowed: subs OK Speci al Instruct ion: TAKE 1 TABLET BY MOUTH DAILY Me dication GenericN jemal: hydrochl orothiaz guille Not Available Not Available Not Available ergocalci ferol (vitamin D2) 1,250 mcg (50,000 unit) capsule active Not Available Not Available Not Available azelastin e 137 mcg (0.1 %) nasal spray SPRAY 2 SPRAYS TWICE A DAY BY INTRANAS AL ROUTE active Not Available Not Available No t Available albuterol sulfate HFA 90 mcg/actua tion aerosol inhaler INHALE TWO PUFFS BY MOUTH EVERY 6 HOURS NEEDED active Not Available Not Available No t Available losartan 100 mg tablet 2018 active Medicati on ID: [id number] D uration Value: 90 Brand Name: losartan Send Method: E-Prescr ibed Sub s Allowed: subs OK Speci al Instruct ion: TAKE 1 TABLET BY MOUTH DAILY Me dication GenericN jemal: losartan Not Available Not Available Not Available terazosin 10 mg capsule 08/30 completed Medicati on ID: [id number] R hernan: () Brand Name: terazosi n Send Method: E-Prescr ibed Sub s Allowed: subs OK Medic ationGen ericName : terazosi n Not Available Not Available Not Available ipratropi um bromide 21 mcg (0.03 %) nasal spray 05/19 completed Medicati on ID: [id number] D uration Value: 30 Brand Name: ipratrop ium bromide Send Method: E-Prescr ibed Sub s Allowed: subs OK Speci al Instruct ion: 2 sprays in each nostril 1-3 times a day Medi cationGe nericNam e: ipratrop ium bromide Not Available Not Available Not Available finasteri de 5 mg tablet 2017 active Medicati on ID: [id number] B rand Name: finaster guille Send Method: E-Prescr ibed Sub s Allowed: subs OK Medic ationGen ericName : finaster guille Not Available Not Available Not Available tadalafil 5 mg tablet 05/19 completed Not Available Not Available Not Available tadalafil 10 mg tablet TAKE ONE TABLET BY MOUTH EVERY DAY FOR BPH active Not Available Not Available No t Available fesoterod ine ER 4 mg tablet,ex tended release 24 hr TAKE ONE TABLET BY MOUTH EVERY DAY active Not Available Not Available No t Available Vitals Date Recorded Body height Body mass index (BMI) Body weight Provider Name and Address Organization Details Last Updated DateTime 12/30/2023 172.72 cm 28.9 kg/m2 53933.55 g Beverly Baires [facility] 12/30/2023 11:06:47 Date Recorded Body height Body mass index (BMI) Body weight Provider Name and Address Organization Details Last Updated DateTime 05/19/2024 172.72 cm 28.1 kg/m2 76630.59 g Margaret Dugan [facility] 05/19/2024 09:49:05 Social History None recorded. Functional Status None recorded. Mental Status None recorded. Family History Nothing Reported. Medical History No medical history recorded. Past Encounters Encounter ID Performer Location Encounter Start Date Encounter Closed Date Diagnosis/Indication Diagnosis SNOMED-CT Code Diagnosis ICD10 Code Diagnosis Note [id number] RANDI FUNEZ PA-C [facility] on [address] [place] [id number] 12/30/2023 10:58:26 12/30/2023 12:09:53 Nasal congestion 22388218 R09.81 Chronic rhinitis 1673483 6 J31.0 Deviated nasal septum 12 5701089 J34.2 [id number] MONALISA GUADARRAMA MD [facility] on [address] [place] [id number] 05/19/2024 09:35:43 05/19/2024 10:21:28 Chronic rhinitis 39750731 J31.0 Deviated nasal septum 12 9996992 J34.2 Health Concerns Section Related Observation LastModified by Organization Detai ls LastModified Time None Recorded Concern Status LastModified by Organization Details LastModified Time None Recorded Advance Directives Directive None Recorded Payers Insurance Date Sequence Insurance Name Policy Number Policy Díaz Covered Member ID Díaz Member ID Guarantor Name 05/25/2024 1 BELEM [id number] Cheyenne Wen [id number] Cheyenne Wen Notes Date Note Type Note Provider Name and Address Organization Details Recorded Time 12/30/2023 text/html 73 year old male presents today for follow up for nasal congestion. Previous exams have noted a mild right septal deviation and nasal valve collapse. At his last visit he was prescribed ipratropium nasal spray and advised to use sinus cones. He reports neither helped. At this point, he has tried Flonase, Astepro, breathe right strips, Dayquil and Afrin. He tries not to use the Afrin daily, but he has been using it three times day for the last three days because he is so congested. His sleep is significantly affected, he reports getting 2-3 hours of sleep per night. History also significant for PACO but non compliant with CPAP. No allergy history or symptoms. HANS GRANADO MD [address] [facility],[place] [address], [place], [phone], [facility] - [facility] 01/04/2024 08:25:57 05/19/2024 text/html 74 yo M presents for follow up. Triamcinolone nasal spray helps a little. Plugs at night. Needs to change position to breathe better. Extremely congested in the spring. Have not used the Afrin in awhile. He had a CT scan in March showed mucosal thickening within the right frontal sinus and right ethmoidal air cells with a mucous retention cyst or polyp in the right maxillary sinus. There is mucosal thickening within the left maxillary sinus. There was deviation of the soft tissue nasal septum to the left. Has a history of PACO, no CPAP. PV: 73 year old male presents today for follow up for nasal congestion. Previous exams have noted a mild right septal deviation and nasal valve collapse. At his last visit he was prescribed ipratropium nasal spray and advised to use sinus cones. He reports neither helped. At this point, he has tried Flonase, Astepro, breathe right strips, Dayquil and Afrin. He tries not to use the Afrin daily, but he has been using it three times day for the last three days because he is so congested. His sleep is significantly affected, he reports getting 2-3 hours of sleep per night. History also significant for PACO but non compliant with CPAP. No allergy history or symptoms. MONALISA GUADARRAMA MD [address] [facility],[place] [address], [place], [phone], [facility] - [facility] 05/22/2024 11:08:52
--- NOTE | 2025-02-07 08:36 | A.OFFVIS_ITS ---
Intake Visit Reasons: 6m/PVR/PSA Intake Note: Patient is present for 6M/PVR/PSA Urology Medication:TERAZOSIN,TADALAFIL,FESOTERDINE Antibiotic Allergy:NONE Blood Thinner:NONE TODAY'S PVR: 17ML'S Electronic Tech Required: No Allergies No Known Allergies Allergy (Verified 02/07/25 08:37) HPI Comments Details: Jabier is a pleasant male. He is a patient of Dr. Hines. He is seen for the following urologic conditions - lower urinary tract symptoms - overactive bladder dry - nephrolithiasis Six-month follow-up Has remained on low-dose Toviaz, trospium, tadalafil with InterStim Urinary Symptoms Review - Nocturia: Wakes up 3-4 times per night - Urinary frequency: Approximately every 1.5 hours during the day - Urinary incontinence: Difficulty stopping urine flow, resulting in dribbling - Urinary urgency: Sudden urge to urinate, but improved control - Current medications: Trospium, Tadalafil, and Vastardine - Management: Male pelvic floor exercises recommended Lower Urinary Tract Symptoms:? Current visit is for?further evaluation of, lower urinary tract symptoms, predominate irritative symptoms.? Current treatment includes combination therapy - terazosin, tadalafil - prior discussion Botox ?Failed previous oxybutynin - failed PTNS, Myrbetriq, tropsium Cystoscopy - 09/07 smaller prostate with open bladder neck ? Prostate Symptom Score?09/05 , Mild (0-8), Bother 2.? Symptoms include?09/05 , incomplete emptying, weak stream, urgency.? Prostate volume?30-50gm - Interstim placement 04/09 with good success Nephrolithiasis/Urolithiasis:? They are here for?further evaluation of nephrolithiasis.? Prior imaging includes?09/03 , a renal ultrasound, showing no evidence of stones - 12/05 renal ultrasound bilateral renal cysts 4.7 cm right, 2.7 cm left - 05/08 renal ultrasound multiple bilateral cysts up to 4 cm no evidence of stones PFSH Medical History (Updated 03/28/24 @ 11:37 by Ashleigh Holden RN) Hepatitis-C Sleep apnea Kidney stones HTN (hypertension) Hyperlipidemia Feeling of incomplete bladder emptying Benign prostatic hyperplasia with lower urinary tract symptoms Surgical History (Updated 03/28/24 @ 11:32 by Ashleigh Holden RN) History of surgery History of Achilles tendon repair History of back surgery H/O rotator cuff surgery History of surgery Social History Patient Tobacco Use Status: Former Tobacco user Tobacco use type: Cigarette Review of Systems Const Denies chills and Denies fever(s) Card Reports no additional complaints and Denies syncope Resp Denies cough GI Denies abdominal pain and Denies heartburn Reports as per HPI and Denies change in libido Neuro Denies syncope Psych Denies change in libido Endo Denies change in libido Physical Exam Const General: cooperative, healthy appearing, comfortable and no acute distress Orientation/consciousness: patient oriented x3 HEENT Face and sinus: Yes normal facial exam Mouth: moist mucous membranes Neck Neck: Yes normal visual inspection, Yes full ROM and Yes trachea midline Chest Chest palpation & inspection: normal inspection of the chest Resp Effort & Inspection: normal respiratory effort, able to speak in complete sentences and no respiratory distress GI Inspection: Yes normal to inspection Back/Spine/Pelvis Cervical Spine: normal cervical lordosis Thoracic/Lumbar Spine: thoracic and lumbar spine normal to inspection Skin General skin exam: no rashes or lesions noted Neuro General: patient oriented x3, gait normal, tone normal and moves all extremities Extrem General: Yes normal to inspection and Yes capillary refill normal Office Procedures Post Void Residual Post Residual Void Post Void Residual (PVR): 17 [id number] Void Residual by ultrasound Assessment & Plan Assessment & Plan (1) BPH loc w urin obs/LUTS: Code(s): N40.1 - Benign prostatic hyperplasia with lower urinary tract symptoms Category: Medical (2) Nephrolithiasis: Code(s): N20.0 - Calculus of kidney Category: Medical (3) Overactive bladder: Code(s): N32.81 - Overactive bladder Category: Medical Plan 1. Nocturia Manage with current medications and pelvic floor exercises. 2. Urinary Frequency Continue Trospium, Tadalafil, and Vastardine; perform pelvic floor exercises. 3. Urinary Incontinence Recommend pelvic floor exercises to improve control. 4. Urinary Urgency Maintain current medications and pelvic floor exercises. Discussion Notes We discussed the management of urinary symptoms, including nocturia, urinary frequency, incontinence, and urgency. The patient is advised to continue current medications and perform pelvic floor exercises. Follow-up is planned in six months, with the option for a phone consultation if needed. Patient Instructions - Continue taking Trospium, Tadalafil, and Vastardine as prescribed. - Perform pelvic floor exercises regularly. - Schedule a follow-up appointment in six months or call if symptoms worsen. Orders: Orders AMB Urinalysis Automated Today Z13.9 - Encounter for screening, unspecified Patient Instructions: This note is constructed using voice recognition software. While every effort has been made to ensure accuracy bus washer errors may have been included. Imaging studies, laboratory and physical exam results were discussed and reviewed in detail. No major barriers to patient understanding were identified. An opportunity to ask questions regarding the treatment plan was provided. All questions were answered. The patient expressed understanding and agreement with the above treatment plan. The patient is aware they should contact our office by phone for worsening of their current condition or the appearance of new urologic symptoms. Compliance is encouraged with any medications and followup testing that is ordered. It is a privilege to participate in the urologic care of your patient. If you have any questions or concerns regarding treatment for the above conditions, or other urologic issues, please do not hesitate to contact me. The office telephone contact is [phone]. Sincerely, Dr Chapin Oropeza MD, [facility] - Urology Compassionate Specialist Care for the Genitourinary System Coding Level of Care Code Est Pt Level 3 (91597) Complex EM visit Add On G2211 Diagnoses BPH loc w urin obs/LUTS N40.1 Nephrolithiasis N20.0 Overactive bladder N32.81 CPT Codes Post Residual Void - PVR CPT Code: 68886-Jtbu Void Residual by ultrasound ([id number])
== END 2025-02-07 08:59 | disposition home or self-care (01) ==
LOC: HO.HUSH 08:05
PROVIDERS: Visit Provider Urology
DX: N40.1 Benign prostatic hyperplasia with lower urinary tract symptoms (principal); N20.0 Calculus of kidney; N32.81 Overactive bladder; Z13.9 Encounter for screening, unspecified
CPT/HCPCS: 99213

== ENCOUNTER → 2025-02-07 08:05 | Outpatient (BNVA) | payer OTHER, SELFPAY | PROVIDERS: Visit Provider Urology | DX: N20.0 Calculus of kidney (principal); N40.1 Benign prostatic hyperplasia with lower urinary tract symptoms | CPT/HCPCS: 51798; 81003 ==